=== PATIENT | male | born 1970 | race Caucasian/White ===

== ENCOUNTER 2023-09-24 13:37 | Emergency (ER) | payer BC ==
[2023-09-24] MEDS ORDERED: ACETAMINOPHEN TAB 325 MG TAB PO STA (15:08)
--- NOTE | 2023-09-24 15:14 | ED ---
Dizziness HPI - General Chief Complaint: Syncope Stated Complaint: syncope-rib pain Time Seen by Provider: 09/24/23 15:13 Source: patient, RN notes reviewed Mode of arrival: ambulatory Limitations: no limitations - History of Present Illness Initial Comments: patient is a 53-year-old male presented ER with chief complaint of syncope. Patient states he had 2 syncopal episodes this morning. He reports he was in his basement when he stood up to look at deer. The next thing he remembers is his vision going black and he passed out. Patient denies any dizziness, chest pain, shortness of breath or lightheadedness prior to the blackout sensation. Patient states he tried to go stairs totally down after the first syncopal episode and states he believes he fell again. Patient has no significant past medical history. Patient states that he has extreme pain in his right side where he had he also states he hit his head. Denies blood thinner use. Patient was recently treated with steroids and antibiotics for upper respiratory infection. He states that he has been off antibiotics for a day or 2 now. Patient denies headache, fevers, chills, abdominal pain, urinary symptoms, constipation/diarrhea, peripheral edema. - Related Data Allergies Allergy/AdvReac Type Severity Reaction Status Date / Time No Known Allergies Allergy Verified 09/24/23 14:24 Review of Systems ROS Statement: Those systems with pertinent positive or pertinent negative responses have been documented in the HPI. ROS Other: All systems not noted in ROS Statement are negative. Past Medical History Past Medical History: No Reported History History of Any Multi-Drug Resistant Organisms: None Reported Past Surgical History: Back Surgery, Tonsillectomy Past Psychological History: No Psychological Hx Reported Smoking Status: Current every day smoker Past Alcohol Use History: Rare Past Drug Use History: None Reported General Exam Limitations: no limitations General appearance: alert, in no apparent distress Head exam: Present: atraumatic, normocephalic, normal inspection, other (small abrasion noted on right forehead) Eye exam: Present: normal appearance, PERRL, EOMI. Absent: scleral icterus, conjunctival injection, periorbital swelling Pupils: Present: normal accommodation ENT exam: Present: normal exam, mucous membranes moist Respiratory exam: Present: normal lung sounds bilaterally. Absent: respiratory distress, wheezes, rales, rhonchi, stridor Cardiovascular Exam: Present: regular rate, normal rhythm, normal heart sounds. Absent: systolic murmur, diastolic murmur, rubs, gallop, clicks GI/Abdominal exam: Present: soft, normal bowel sounds. Absent: distended, tenderness, guarding, rebound, rigid Extremities exam: Present: normal inspection, full ROM, normal capillary refill. Absent: tenderness, pedal edema, joint swelling, calf tenderness Neurological exam: Present: alert, oriented X3, CN II-XII intact Psychiatric exam: Present: normal affect, normal mood Skin exam: Present: warm, dry, intact, normal color. Absent: rash Course Vital Signs 09/24/23 09/24/23 09/24/23 14:21 16:20 17:00 Temperature 98 F Pulse Rate 99 73 79 Respiratory 18 21 22 Rate Blood Pressure 115/80 128/86 121/85 O2 Sat by Pulse 99 98 100 Oximetry 09/24/23 09/24/23 18:00 20:00 Temperature 98.5 F Pulse Rate 70 70 Respiratory 18 18 Rate Blood Pressure 132/90 137/96 O2 Sat by Pulse 100 98 Oximetry Medical Decision Making - Medical Decision Making Was pt. sent in by a medical professional or institution (, PA, EXPRESSIVE THERAPIST, urgent care, hospital, or fdc...) When possible be specific @ -No Did you speak to anyone other than the patient for history (EMS, parent, family, police, friend...)? What history was obtained from this source @ -No Did you review nursing and triage notes (agree or disagree)? Why? @ -I reviewed and agree with nursing and triage notes Were old charts reviewed (outside hosp., previous admission, EMS record, old EKG, old radiological studies, urgent care reports/EKG's, fdc records)? Report findings @ -No old charts were reviewed Differential Diagnosis (chest pain, altered mental status, abdominal pain women, abdominal pain men, vaginal bleeding, weakness, fever, dyspnea, syncope, headache, dizziness, GI bleed, back pain, seizure, CVA, palpatations, mental health, musculoskeletal)? @ -Differential Syncope: Valvular disease, hypertrophic cardiomyopathy, pulmonary embolism, tamponade, tachycardia, bradycardia, TN, hypovolemia, hemorrhage, dissection, anemia, intracranial hemorrhage, seizure, hypoglycemia, carbon monoxide poisoning, this is not meant to be an all-inclusive list. EKG interpreted by me (3pts min.). @ -As above X-rays interpreted by me (1pt min.). @ -X-ray of right ribs with PA chest shows right rib 8 fracture with incomplete displacement. Right upper lung masslike opacity and scattered airspace opacities in lungs. CT was suggested for further evaluation. CT interpreted by me (1pt min.). @ -CT brain shows no acute intracranial process. CTA chest shows no evidence of pulmonary embolism. There is acute right rib 10 fracture posteriorly and lateral aspect of ribs 7 and 8. There is also diffuse pulmonary nodules with large right upper lung nodule measuring 3.11.6 cm. There is an increased right perihilar soft tissue also present with mediastinal lymphadenopathy. Findings are highly is suspicious of metastatic disease. U/S interpreted by me (1pt. min.). @ -None done What testing was considered but not performed or refused? (CT, X-rays, U/S, labs)? Why? @ -None What meds were considered but not given or refused? Why? @ -None Did you discuss the management of the patient with other professionals (professionals i.e. , PA, EXPRESSIVE THERAPIST, lab, RT, psych nurse, social media senior associate, technology manager, teacher, bsa/aml compliance officer, case packer and sealer)? Give summary @ -No Was smoking cessation discussed for >3mins.? @ -No Was critical care preformed (if so, how long)? @ -No Were there social determinants of health that impacted care today? How? (Homelessness, low income, unemployed, alcoholism, drug addiction, transportation, low edu. Level, literacy, decrease access to med. care, [facility], rehab)? @ -No Was there de-escalation of care discussed even if they declined (Discuss DNR or withdrawal of care, Hospice)? DNR status @ -No What co-morbidities impacted this encounter? (DM, HTN, Smoking, COPD, CAD, C ancer, CVA, ARF, Chemo, Hep., AIDS, mental health diagnosis, sleep apnea, morbid obesity)? @ -Smoking Was patient admitted / discharged? Hospital course, mention meds given and route, prescriptions, significant lab abnormalities, going to OR and other pertinent info. @ -Discharged. Patient is a 53 year old male presenting to the ER with a chief complaint of syncope. Patient states he had 2 syncopal episodes today and is now complaining of right-sided chest pain. Vital signs are stable. Chest x-ray of right ribs with PA chest shows right rib 8 fracture with incomplete displacement. Right upper lung masslike opacity and scattered airspace opacities in lungs. CT was suggested for further evaluation. Labs obtained in the ER were unimpressive except for mild dehydration and a d-dimer of 1.40. CTA chest was then performed which was negative for pulmonary embolism. There is acute right rib 10 fracture posteriorly and lateral aspect of ribs 7 and 8. There is also diffuse pulmonary nodules with large right upper lung nodule measu ring 3.11.6 cm. There is an increased right perihilar soft tissue also present with mediastinal lymphadenopathy. Findings are highly is suspicious of metastatic disease. Patient also received a CT brain due to syncopal episodes and head injury. CT brain showed no acute intracranial process. Patient received 1 L IV fluids, PO tylenol, IV Dilaudid and Zofran for pain control. I discussed at length with the patient and his the results of the CT scan and the high suspicion for lung cancer. Patient will be discharged in stable condition with follow-up to PCP and oncology. Patient's stated she already spoke with his PCP and he will be seen tomorrow. reported she is going to call oncology tomorrow morning. Patient expressed understanding and agreement with care plan. Undiagnosed new problem with uncertain prognosis? @ -Yes Drug Therapy requiring intensive monitoring for toxicity (Heparin, Nitro, Insulin, Cardizem)? @ -No Were any procedures done? @ -No Diagnosis/symptom? @ -Pulmonary mass and nodules Acute, or Chronic, or Acute on Chronic? @ -Acute Uncomplicated (without systemic symptoms) or Complicated (systemic symptoms)? @ -Complicated Side effects of treatment? @ -No Exacerbation, Progression, or Severe Exacerbation? @ -No Poses a threat to life or bodily function? How? (Chest pain, USA, TN, pneumonia, PE, COPD, DKA, ARF, appy, cholecystitis, CVA, Diverticulitis, Homicidal, Suicidal, threat to staff... and all critical care pts) @ -Yes - Lab Data Result diagrams: 09/24/23 16:03 09/24/23 16:03 Lab Results 09/24/23 09/24/23 09/24/23 Range/Units 15:39 16:03 16:03 WBC 6.7 (3.8-10.6) k/uL RBC 5.00 (4.30-5.90) m/uL Hgb 15.2 (13.0-17.5) gm/dL Hct 44.7 (39.0-53.0) % MCV 89.4 (80.0-100.0) fL MCH 30.4 (25.0-35.0) pg MCHC 34.0 (31.0-37.0) g/dL RDW 12.4 (11.5-15.5) % Plt Count 360 (150-450) k/uL MPV 7.3 Neutrophils % 75 % Lymphocytes % 15 % Monocytes % 8 % Eosinophils % 1 % Basophils % 1 % Neutrophils # 5.0 (1.3-7.7) k/uL Lymphocytes # 1.0 (1.0-4.8) k/uL Monocytes # 0.5 (0-1.0) k/uL Eosinophils # 0.1 (0-0.7) k/uL Basophils # 0.0 (0-0.2) k/uL D-Dimer 1.94 H (<0.60) mg/L FEU Sodium (137-145) mmol/L Potassium (3.5-5.1) mmol/L Chloride (98-107) mmol/L Carbon Dioxide (22-30) mmol/L Anion Gap mmol/L BUN (9-20) mg/dL Creatinine (0.66-1.25) mg/dL Est GFR (CKD-EPI)AfAm (>60 ml/min/1.73 sqM) Est GFR (CKD-EPI)NonAf (>60 ml/min/1.73 sqM) Glucose (74-99) mg/dL Calcium (8.4-10.2) mg/dL Magnesium (1.6-2.3) mg/dL Total Bilirubin (0.2-1.3) mg/dL AST (17-59) U/L ALT (4-49) U/L Alkaline Phosphatase (38-126) U/L Troponin I (0.000-0.034) ng/mL Total Protein (6.3-8.2) g/dL Albumin (3.5-5.0) g/dL Urine Color Urine Appearance (Clear) Urine pH (5.0-8.0) Ur Specific [place] (1.001-1.035) Urine Protein (Negative) Urine Glucose (UA) (Negative) Urine Ketones (Negative) Urine Blood (Negative) Urine Nitrite (Negative) Urine Bilirubin (Negative) Urine Urobilinogen (<2.0) mg/dL Ur Leukocyte Esterase (Negative) Influenza Type A (PCR) Not Detected (Not Detectd) Influenza Type B (PCR) Not Detected (Not Detectd) RSV (PCR) Not Detected (Not Detectd) SARS-CoV-2 (PCR) Not Detected (Not Detectd) 09/24/23 09/24/23 09/24/23 Range/Units 16:03 16:03 16:03 WBC (3.8-10.6) k/uL RBC (4.30-5.90) m/uL Hgb (13.0-17.5) gm/dL Hct (39.0-53.0) % MCV (80.0-100.0) fL MCH (25.0-35.0) pg MCHC (31.0-37.0) g/dL RDW (11.5-15.5) % Plt Count (150-450) k/uL MPV Neutrophils % % Lymphocytes % % Monocytes % % Eosinophils % % Basophils % % Neutrophils # (1.3-7.7) k/uL Lymphocytes # (1.0-4.8) k/uL Monocytes # (0-1.0) k/uL Eosinophils # (0-0.7) k/uL Basophils # (0-0.2) k/uL D-Dimer (<0.60) mg/L FEU Sodium 135 L (137-145) mmol/L Potassium 3.9 (3.5-5.1) mmol/L Chloride 99 (98-107) mmol/L Carbon Dioxide 27 (22-30) mmol/L Anion Gap 9 mmol/L BUN 19 (9-20) mg/dL Creatinine 0.75 (0.66-1.25) mg/dL Est GFR (CKD-EPI)AfAm >90 (>60 ml/min/1.73 sqM) Est GFR (CKD-EPI)NonAf >90 (>60 ml/min/1.73 sqM) Glucose 98 (74-99) mg/dL Calcium 9.1 (8.4-10.2) mg/dL Magnesium 2.2 (1.6-2.3) mg/dL Total Bilirubin 0.5 (0.2-1.3) mg/dL AST 21 (17-59) U/L ALT 27 (4-49) U/L Alkaline Phosphatase 96 (38-126) U/L Troponin I <0.012 (0.000-0.034) ng/mL Total Protein 7.0 (6.3-8.2) g/dL Albumin 4.2 (3.5-5.0) g/dL Urine Color Yellow Urine Appearance Clear (Clear) Urine pH 6.0 (5.0-8.0) Ur Specific [place] 1.018 (1.001-1.035) Urine Protein Trace H (Negative) Urine Glucose (UA) Negative (Negative) Urine Ketones Negative (Negative) Urine Blood Negative (Negative) Urine Nitrite Negative (Negative) Urine Bilirubin Negative (Negative) Urine Urobilinogen <2.0 (<2.0) mg/dL Ur Leukocyte Esterase Negative (Negative) Influenza Type A (PCR) (Not Detectd) Influenza Type B (PCR) (Not Detectd) RSV (PCR) (Not Detectd) SARS-CoV-2 (PCR) (Not Detectd) - EKG Data -: EKG Interpreted by Me EKG Comments: EKG taken at 15:27 shows normal sinus rhythm with no acute ST segment or T-wave abnormalities. Ventricular rate 78, OK interval 137, QRS duration 96, QT/QTC 374/407. - Radiology Data Radiology results: report reviewed, image reviewed Disposition Clinical Impression: Dehydration, Lung mass Disposition: HOME SELF-CARE Condition: Stable Additional Instructions: Please return to the Emergency Department if symptoms worsen or any other concerns. Please follow-up with PCP in the next 24-48 hours. , [facility] [place] [facility] [phone]. Dr. Richardson [phone]. Is patient prescribed a controlled substance at d/c from ED?: No Referrals: Rosemarie Wolf DO [Primary Care Provider] - 1-2 days Nate Smith [STAFF PHYSICIAN] - 1-2 days Time of Disposition: 20:41
[2023-09-24 16:30] LABS: Basophils % (A) 1 %; Eosinophils # (A) 0.1 k/uL (0-0.7); Eosinophils % (A) 1 %; HCT 44.7 % (39.0-53.0); HGB 15.2 gm/dL (13.0-17.5); Lymphocytes % (A) 15 %; MCH 30.4 pg (25.0-35.0); MCV 89.4 fL (80.0-100.0); Mean Platelet Volume 7.3; Monocytes # (A) 0.5 k/uL (0-1.0); Monocytes % (A) 8 %; Neutrophils % (A) 75 %; Platelet Count 360 k/uL (150-450); RDW 12.4 % (11.5-15.5); WBC 6.7 k/uL (3.8-10.6)
[2023-09-24 16:41] LABS: ALT 27 U/L (4-49); AST 21 U/L (17-59); African American GFR (CKD) >90 (>60 ml/min/1.73 sqM); Albumin 4.2 g/dL (3.5-5.0); Alkaline Phosphatase 96 U/L (38-126); Anion Gap 9 mmol/L; Blood Urea Nitrogen 19 mg/dL (9-20); Calcium 9.1 mg/dL (8.4-10.2); Carbon Dioxide 27 mmol/L (22-30); Chloride 99 mmol/L (98-107); Glucose 98 mg/dL (74-99); Magnesium 2.2 mg/dL (1.6-2.3); Non-African American GFR(CKD) >90 (>60 ml/min/1.73 sqM); Potassium 3.9 mmol/L (3.5-5.1); Sodium 135 mmol/L (137-145); Total Bilirubin 0.5 mg/dL (0.2-1.3)
--- NOTE | 2023-09-24 17:09 | XR ---
EXAMINATION TYPE: XR ribs RT w pa chest xray DATE OF EXAM: 09/24/2023 4:04 PM CLINICAL INDICATION:Male, 53 years old with history of pain; [facility] COMPARISON: None TECHNIQUE: XR ribs RT w pa chest xray; Frontal and oblique views of the ribs with frontal chest radio graph. FINDINGS: There is a fracture line through right rib 8 no additional fractures definitively visualize d. Remainder of the chest demonstrates scattered airspace opacities throughout both lungs. IMPRESSION: 1. Right rib 8 fracture with incomplete displacement 2. Right upper lung masslike opacity. Attention on subsequent chest CT. 3. Scattered airspace opacities in lung attention on subsequent CT chest.
[2023-09-24] MEDS ORDERED: SODIUM CHLORIDE 0.9% 1,000 ML IV STA (17:16)
[2023-09-24 17:59] LABS: Appearance,Urine Clear (Clear); Bilirubin,Urine Negative (Negative); Blood,Urine Negative (Negative); Color,Urine Yellow; Glucose,Urine (UA) Negative (Negative); Ketones,Urine Negative (Negative); Leukocyte Esterase,Urine Negative (Negative); Nitrite,Urine Negative (Negative); Protein,Urine Trace (Negative); Specific Gravity,Urine 1.018 (1.001-1.035); Urobilinogen,Urine <2.0 mg/dL (<2.0)
--- NOTE | 2023-09-24 19:41 | CT ---
EXAMINATION TYPE: CT brain wo con CT DLP: 1211 mGycm, Automated exposure control for dose reduction was used. DATE OF EXAM: 09/24/2023 7:35 PM COMPARISON: None. CLINICAL INDICATION:Male, 53 years old with history of dizziness, TECHNIQUE: Brain: Axial CT images of the brain were obtained with coronal and sagittal reformats created and rev iewed. Contrast used: None. Oral contrast used: None. FINDINGS: Brain: Extra-axial spaces: No abnormal extra-axial fluid collections. Ventricular system: Within normal limits Cerebral parenchyma: No acute intraparenchymal hemorrhage or mass effect. The mcmullen-white junction is well differentiated. Cerebellum: Unremarkable. Mass effect: No evidence of midline shift. Intracranial vasculature: unremarkable Soft tissues: Normal. Calvarium/osseous structures: No depressed skull fracture. Paranasal sinuses and mastoid air cells: Mild scattered paranasal sinus disease. Visualized orbits: Orbital contents are intact. IMPRESSION: No acute intracranial process.
--- NOTE | 2023-09-24 19:50 | CT ---
EXAMINATION TYPE: CT chest angio for PE CT DLP: 282 mGycm, Automated exposure control for dose reduction was used. DATE OF EXAM: 09/24/2023 7:35 PM COMPARISON: Chest radiograph same day. CLINICAL INDICATION:Male, 53 years old with history of elevated d dimer; TECHNIQUE/CONTRAST: CTA scan of the thorax is performed with IV Contrast, patient injected with 100 cc of Isovue 300, MIP images are created and reviewed these are created on a separate workstation.. FINDINGS: Pulmonary Artery: There is no evidence for a filling defect within the pulmonary vasculature to sugge st acute pulmonary embolism. The pulmonary artery is of normal size. Lungs/Pleura: Diffuse pulmonary nodules predominantly below 1 cm in size. There is right upper lung n odular change measuring 3.1 x 1.6 cm with right pulmonary hilum increased soft tissue. Airway: Large airways are patent. Heart: Heart is within normal limits for size. Vasculature: No evidence of aortic aneurysm. Mediastinum: Increase adenopathy mediastinum including increased right perihilar fullness. Right low paratracheal lymph node measuring 12 mm in short axis. Subcarinal lymph node measuring 13 mm in short axis. Musculoskeletal: Fracture through the right rib #10 posteriorly and rib 7 and 8 laterally. Soft Tissues: Unremarkable. Lower neck: No significant findings. Upper Abdomen: No significant findings. IMPRESSION: 1. No evidence of pulmonary embolism. 2. Acute right rib 10 fracture posteriorly and lateral aspect of ribs 7 and 8. 3. Diffuse pulmonary nodules with larger right upper lung nodules. There is increased right perihilar soft tissue also present with mediastinal lymphadenopathy. Findings highly suspicious for malignancy with metastatic disease a total proven otherwise with diffuse metastatic disease throughout the lung s.
[2023-09-24] MEDS ORDERED: HYDROmorphone 0.5 MG/0.5 ML SYRINGE IVP STA (20:02)
[2023-09-24] MEDS ORDERED: ONDANSETRON 4 MG/2 ML VIAL IVP STA (20:02)
[2023-09-24] MEDS ORDERED: ACET/COD 300 MG/30 MG STARTER PACK 6 TAB BTL PO STA (20:39)
[2023-09-24 21:02] VITALS: BP 137/96; PULSE 70; RESP 18; TEMP 98.5
== END 2023-09-24 21:10 | disposition home or self-care (01) ==
LOC: EC 13:37
DX: S22.31XA Fracture of one rib, right side, initial encounter for closed fracture (principal); E86.0 Dehydration; R91.1 Solitary pulmonary nodule; F17.200 Nicotine dependence, unspecified, uncomplicated; X58.XXXA Exposure to other specified factors, initial encounter; Z20.822 Contact with and (suspected) exposure to COVID-19
CPT/HCPCS: 36415; 93005; 85379; 80053; 83735; 84484; 85025; 81003; 87636; 71101; 70450; 71275; 99285; 96374; 96375; 96361; J2405; J1170; Q9967